=== PATIENT | female | born 1995 ===

== ENCOUNTER 2023-07-25 21:35 | Emergency (ER) | payer OTHER ==
[~2023-07-25] VITALS: Ht 154.9 cm; Wt 87.0 kg
[2023-07-25 22:02] LABS: BILIRUBIN, URINE NEGATIVE (negative); BLOOD/HGB, URINE NEGATIVE (Negative); KETONE, URINE NEGATIVE (Negative); LEUK ESTERASE, URINE NEGATIVE (negative); NITRITE, URINE NEGATIVE (negative)
[2023-07-25 22:59] LABS: BASOPHILS 0.5 % (0-2); EOSINOPHILS 1.1 % (0-6); HEMATOCRIT 35.1 % (35.0-50.0); HEMOGLOBIN 11.8 g/dL (12.0-18.0); LYMPHOCYTES 16.8 % (24-44); MCH 29.7 (27-36); MCHC 33.7 g/dl (30-36); MCV 88.2 fl (81-99); MONOCYTES 6.2 % (0-12); NEUTROPHILS 75.4 % (39-80); PLATELET COUNT 181 K/uL (140-440); RBC 3.98 M/ul (4.3-5.7); RDW 13.3 (10.5-15.0)
[2023-07-25 23:29] LABS: INFLUENZA B NAA NEGATIVE (NEGATIVE); RESPIRATORY SYNCYTIAL VIR NAA NEGATIVE (NEGATIVE)
[2023-07-26 01:01] VITALS: BP 105/64
== END 2023-07-26 01:04 | disposition home or self-care (01) ==
LOC: ED 21:35
PROVIDERS: Family Medicine
DX: O99.891 Other specified diseases and conditions complicating pregnancy (principal); R10.33 Periumbilical pain; Z3A.16 16 weeks gestation of pregnancy
CPT/HCPCS: 36415; 76815; 81003; 84702; 85025; 87502; 99284-25; U0002